=== PATIENT | male | born 1980 | race American Indian/Alaskan Native ===

== ENCOUNTER 2018-03-17 12:53 | Emergency (ER) | payer MEDICAID ==
[2018-03-17 13:04] VITALS: BMI 44.4
[2018-03-17 13:25] VITALS: BP 120/78
[2018-03-17] MEDS ORDERED: Sodium Chloride 0.9% 1,000 ML IV STA (13:51)
[2018-03-17 14:14] LABS: BASO # 0.04 K/mm3 (0.0-2.0); BASO % 0.6 % (0.0-3.0); EOS # 0.1 (0.0-0.7); EOS % 0.9 % (1.5-5.0); GRAN # 3.65 (1.4-6.5); GRAN % 57.8 % (50.0-68.0); HEMOGLOBIN 15.7 g/dL (14.0-18.0); LYMPH % 31.2 % (22.0-35.0); MEAN CELL VOLUME 89.2 fl (80.0-105.0); MEAN CORPUSCULAR HEMOGLOBIN 30.9 pg (25.0-35.0); MEAN CORPUSCULAR HGB CONC 34.7 g/dl (31.0-37.0); MEAN PLATELET VOLUME 10.9 fl (7.0-11.0); MONO # 0.6 (0.1-0.6); MONO % 9.5 % (1.0-6.0); RBC 5.08 10^6/uL (3.5-6.1); RED CELL DISTRIBUTION WIDTH 14.7 % (11.5-14.5); WHITE BLOOD COUNT 6.3 10^3/uL (4.5-11.0)
[2018-03-17 14:21] LABS: ALBUMIN 4.4 g/dL (3.0-4.8); ALT/SGPT 33 U/L (7-56); AST/SGOT 31 U/L (17-59); BLOOD UREA NITROGEN 4 mg/dL (7-21); CALCIUM 9.7 mg/dL (8.4-10.5); GFR NON-AFRICAN AMERICAN > 60; INR 1.14; LIPASE 100 U/L (23-300); PARTIAL THROMBOPLASTIN TIME 28.4 Seconds (25.1-36.5)
[2018-03-17] MEDS ORDERED: Potassium Chloride 20 mEq ER Tab PO STA (14:25)
--- NOTE | 2018-03-17 15:45 | ED PDOC ---
Arrival/HPI - General Chief Complaint: Back Pain Time Seen by Provider: 03/17/18 13:05 Historian: Patient - History of Present Illness Narrative History of Present Illness (Text): 03/17/18 15:39 37yo morbidly obese male with pmhx of hypertension, bib EMS with complaint of left knee and left rib pain s/p trauma today. States after exercising at home, he heard a popping noise on his left knee when he tried to stand up, fell and hit his left side. States he felt lightheaded when he fell. Denies hitting his head anywhere. Denies LOC, focal weakness, nausea, vomiting, diarrhea, constipation, fever,chills, abdominal pain, chest pain, SOB, diaphoresis, focal weakness, any other complaint. Past Medical History - Provider Review Nursing Documentation Reviewed: Yes - Psychiatric Hx Substance Use: No - Surgical History Other/Comment: left leg sx Family/Social History - Physician Review Nursing Documentation Reviewed: Yes Family/Social History: Unknown Family HX Smoking Status: Never Smoked Hx Alcohol Use: Yes Frequency of alcohol use: Socially Hx Substance Use: No Allergies/Home Meds Allergies/Adverse Reactions: Allergies No Known Allergies Allergy (Verified 03/17/18 13:04) Review of Systems - Physician Review All systems were reviewed & negative as marked: Yes - Review of Systems Constitutional: Normal Eyes: Normal ENT: Normal Respiratory: Normal Cardiovascular: Normal Gastrointestinal: Normal Genitourinary Male: Normal Musculoskeletal: Arthralgias (LEft knee and rib) Skin: Normal Neurological: Dizziness Endocrine: Normal Hemo/Lymphatic: Normal Psychiatric: Normal Physical Exam Vital Signs Reviewed: Yes Vital Signs Temp Pulse Resp BP Pulse Ox 03/17/18 13:04 97.5 F L 83 20 120/78 96 Temperature: Afebrile Blood Pressure: Normal Pulse: Regular Respiratory Rate: Normal Appearance: Positive for: Well-Appearing, Non-Toxic, Comfortable Pain Distress: None Mental Status: Positive for: Alert and Oriented X 3 - Systems Exam Head: Present: Atraumatic, Normocephalic Pupils: Present: PERRL Extroacular Muscles: Present: EOMI Conjunctiva: Present: Normal Mouth: Present: Moist Mucous Membranes Neck: Present: Normal Range of Motion Respiratory/Chest: Present: Clear to Auscultation, Good Air Exchange, Tender to Palpation (LEft sided lateral rib). No: Respiratory Distress, Accessory Muscle Use, Wheezes, Decreased Breath Sounds, Rales, Retracting, Rhonchi Cardiovascular: Present: Regular Rate and Rhythm, Normal S1, S2. No: Murmurs Abdomen: No: Tenderness, Distention, Peritoneal Signs Back: Present: Normal Inspection Upper Extremity: Present: Normal Inspection. No: Cyanosis, Edema Lower Extremity: Present: NORMAL PULSES, Normal ROM, Tenderness (Focal medial tenderness of the left knee), Neurovascularly Intact. No: Edema, Swelling Neurological: Present: GCS=15, CN II-XII Intact, Speech Normal, Motor Func Grossly Intact, Normal Sensory Function, Memory Normal Skin: Present: Warm, Dry, Normal Color. No: Rashes Psychiatric: Present: Alert, Oriented x 3, Normal Insight, Normal Concentration Medical Decision Making ED Course and Treatment: 03/17/18 18:54 37yo male bib EMS for stated history. Labs Left knee/rib pain xray Toradol Labs was reviewed and Potassium was repleted. Left knee xray IMPRESSION: Tricompartmental osteoarthritis with small joint effusion Rib/chest xray IMPRESSION: Unremarkable radiographs of the chest and left ribs. No left rib fracture. Result was DW the pt. Knee immobilizer applied. Crutches given. Referred to ortho. Ibuprofen rx given for knee pain. - Lab Interpretations Lab Results: PT 13.0 SECONDS (9.4-12.5) H 03/17/18 14:07 INR 1.14 03/17/18 14:07 APTT 28.4 Seconds (25.1-36.5) 03/17/18 14:07 Total Bilirubin 0.8 mg/dL (0.2-1.3) 03/17/18 14:07 AST 31 U/L (17-59) 03/17/18 14:07 ALT 33 U/L (7-56) 03/17/18 14:07 Alkaline Phosphatase 80 U/L (38-126) 03/17/18 14:07 Total Protein 8.5 g/dL (5.8-8.3) H 03/17/18 14:07 Albumin 4.4 g/dL (3.0-4.8) 03/17/18 14:07 Globulin 4.2 gm/dL 03/17/18 14:07 Albumin/Globulin Ratio 1.0 (1.1-1.8) L 03/17/18 14:07 Lipase 100 U/L (23-300) 03/17/18 14:07 - RAD Interpretation Radiology Orders: 03/17/18 13:50 KNEE WITH PATELLA LEFT 3 VIEW [RAD] Stat 03/17/18 13:51 RIBS LEFT & PA CHEST [RAD] Stat - Medication Orders Current Medication Orders: Discontinued Medications Sodium Chloride (Sodium Chloride 0.9%) 1,000 mls @ 999 mls/hr IV .Q1H1M STA Stop: 03/17/18 14:51 Last Admin: 03/17/18 14:11 Dose: 999 mls/hr eMAR Start Stop Document 03/17/18 14:11 MD (Rec: 03/17/18 14:12 [place] [id number]) Intravenous Solution Start Date 03/17/18 Start Time 14:11 End Date 03/17/18 End time 15:10 Total Infusion Time 59 Ketorolac Tromethamine (Toradol) 30 mg IVP STAT STA Stop: 03/17/18 14:04 Last Admin: 03/17/18 14:24 Dose: 30 mg MAR Pain Assessment Document 03/17/18 14:24 MD (Rec: 03/17/18 14:25 [place] [id number]) Pain Reassessment Is this a pain reassessment? No Sleep Is patient sleeping during reassessment? No Presence of Pain Presence of Pain Yes Pain Scale Used Protocol: PSCALES Pain Scale Used Numeric Location Upper or Lower Lower Pain Location Body Site Back Description Description Acute Intensity of Pain at present 7 Aggravating Factors Changing Position Alleviating Factors Medication IVP Administration Document 03/17/18 14:24 MD (Rec: 03/17/18 14:25 [place] [id number]) Charges for Administration # of IVP Administrations 1 Potassium Chloride (K-Dur 20 Meq Er Tab) 40 meq PO STAT STA Stop: 03/17/18 14:26 Disposition/Present on Arrival - Present on Arrival Any Indicators Present on Arrival: No History of DVT/PE: No History of Uncontrolled Diabetes: No Urinary Catheter: No History of Decub. Ulcer: No History Surgical Site Infection Following: None - Disposition Have Diagnosis and Disposition been Completed?: Yes Diagnosis: Knee pain, Rib pain, Hypokalemia, Light-headedness, Obesity Disposition: HOME/ ROUTINE Disposition Time: 17:00 Patient Plan: Discharge Condition: STABLE Discharge Instructions (ExitCare): Chest Pain That Is Not Caused by the Heart (DC), Hypokalemia (DC) Additional Instructions: Follow up with your doctor/Orthopedist Return to ED for any new symptoms Prescriptions: RX: Ibuprofen [Motrin Tab] 600 mg PO Q6 #20 tab Referrals: PCP,NO [Primary Care Provider] - Follow up with primary Richmond Motley III, MD [Medical Doctor] - Follow up with primary Forms: [employer] ([place])
[2018-03-17 16:53] VITALS: PULSE 66; RESP 18; TEMP 98; O2SAT 98
--- NOTE | 2018-03-17 16:53 | RAD ---
Date of service: 03/17/2018 PROCEDURE: Radiographs of the Chest and Left Ribs. HISTORY: rib pain COMPARISON: None available. TECHNIQUE: Frontal radiograph of the chest and multiple oblique radiographs of the left ribs were obtained. FINDINGS: LEFT RIBS: No fracture or focal lesion visualized. LUNGS: Clear. PLEURA: No pneumothorax or pleural fluid. CARDIOVASCULAR: Normal cardiac size. No pulmonary vascular congestion. No aortic atherosclerotic calcification present OTHER FINDINGS: None. IMPRESSION: Unremarkable radiographs of the chest and left ribs. No left rib fracture.
--- NOTE | 2018-03-17 16:54 | RAD ---
Date of service: 03/17/2018 PROCEDURE: Left Knee Radiographs. HISTORY: Pain. COMPARISON: None. FINDINGS: BONES: Normal. No fracture. JOINTS: Tricompartmental osteoarthritis most pronounced in the medial joint compartment. Large osteophytes about the medial joint compartment. No articular erosion. JOINT EFFUSION: Small OTHER FINDINGS: None. IMPRESSION: Tricompartmental osteoarthritis with small joint effusion
== END 2018-03-17 17:55 | disposition home or self-care (01) ==
LOC: MERGE 12:53 → ED 12:53
DX: R07.81 Pleurodynia (principal); M25.562 Pain in left knee; E87.6 Hypokalemia; R42 Dizziness and giddiness; E66.01 Morbid (severe) obesity due to excess calories; I10 Essential (primary) hypertension
CPT/HCPCS: 71101; 73562; 80053; 83690; 85025; 85610; 85730; 96361; 96374; 99285; J1885; J7030

== ENCOUNTER 2018-04-30 07:25 | Emergency (ER) | payer MEDICAID ==
[2018-04-30 07:30] VITALS: BMI 42.5
[2018-04-30] MEDS ORDERED: Alum-Mag Hydrox-Simethicone Susp (30 mL) PO STA (07:46)
[2018-04-30] MEDS ORDERED: Sodium Chloride 0.9% 1,000 ML IV STA (07:46)
--- NOTE | 2018-04-30 07:52 | ED PDOC ---
Arrival/HPI - General Chief Complaint: Abdominal Pain Time Seen by Provider: 04/30/18 07:42 Historian: Patient - History of Present Illness Narrative History of Present Illness (Text): 04/30/18 07:53 37 year old male, whose past medical history includes hypertension, sleep apnea, depression, and substance abuse, who presents to the emergency department complaining of right upper quadrant pain since last night around 7pm. Patient notes associated nausea, vomiting, and constipation. He denies fevers, chills, headache, dizziness, shortness of breath, dyspnea on exertion, cough, diarrhea, back pain, neck pain, or any other complaint. Time/Duration: 24 hours Symptom Onset: Gradual Symptom Course: Unchanged Activities at Onset: Light Context: Home Past Medical History - Provider Review Nursing Documentation Reviewed: Yes - Infectious Disease Hx of Infectious Diseases: None - Cardiac Hx Hypertension: Yes - Pulmonary Hx Sleep Apnea: Yes - Psychiatric Hx Depression: Yes Hx Substance Use: Yes - Surgical History Other/Comment: left leg sx - Anesthesia Hx Anesthesia: Yes Hx Anesthesia Reactions: No - Suicidal Assessment Feels Threatened In Home Enviroment: No Family/Social History - Physician Review Nursing Documentation Reviewed: Yes Family/Social History: No Known Family HX Smoking Status: Never Smoked Hx Alcohol Use: Yes Hx Substance Use: Yes Substance used: Marijuana Allergies/Home Meds Allergies/Adverse Reactions: Allergies No Known Allergies Allergy (Verified 03/19/18 08:09) Review of Systems - Physician Review All systems were reviewed & negative as marked: Yes - Review of Systems Constitutional: absent: Fevers Respiratory: absent: SOB Physical Exam - Physical Exam Narrative Physical Exam (Text): 04/30/18 08:01 Constitutional: No acute distress. obese. Head: Normocephalic. Atraumatic. Eyes: PERRL. ENT: Moist mucous membranes. Neck: Supple. Cardiovascular: Regular rate. Chest: Reproducible chest wall tenderness. Respiratory: Clear to auscultation bilaterally. GI: right upper quadrant tenderness, no rebound, no guarding, Nondistended. Back: No CVA tenderness. Musculoskeletal: No tenderness or swelling of extremities. Skin: No rash. Neurologic: Alert, no focal deficit. Vital Signs Reviewed: Yes Temperature: Afebrile Blood Pressure: Normal Pulse: Bradycardic Respiratory Rate: Normal Appearance: Positive for: Well-Appearing, Non-Toxic, Comfortable, Other (obese) Pain Distress: None Mental Status: Positive for: Alert and Oriented X 3 Medical Decision Making ED Course and Treatment: 04/30/18 08:04 Impression: 37 year old male who presents to the emergency department complaining of right upper quadrant tenderness. Differential Diagnosis included but are not limited to: cholecystitis gastritis gerd Plan: -- CT of abdomen and pelvis -- Labs -- Pepcid -- Maalox -- IV fluids -- Zofran -- Urine Culture -- Urinalysis -- Reassess and disposition Prior Visits: Notes and results from previous visits were reviewed. Progress Notes: EKG reviewed by me shows: NSR at [address]/t wave changes 04/30/18 09:11 CT of abdomen and pelvis reviewed by radiologist, shows: FINDINGS: LOWER THORAX: Unremarkable. LIVER: Unremarkable. No gross lesion or ductal dilatation. GALLBLADDER AND BILE DUCTS: Unremarkable. PANCREAS: Unremarkable. No gross lesion or ductal dilatation. SPLEEN: Unremarkable. ADRENALS: Unremarkable. No mass. KIDNEYS AND URETERS: Unremarkable. No hydronephrosis. No solid mass. 6 mm nonobstructing stone in the right kidney near the renal pelvis. VASCULATURE: Unremarkable. No aortic aneurysm. No aortic atherosclerotic calcification or mural plaque present. BOWEL: Unremarkable. No obstruction. No gross mural thickening. APPENDIX: Normal appendix. PERITONEUM: Unremarkable. No free fluid. No free air. LYMPH NODES: Unremarkable. No enlarged lymph nodes. BLADDER: Unremarkable. REPRODUCTIVE: Unremarkable. BONES: Disc degeneration at L5-S1 OTHER FINDINGS: None. IMPRESSION: No acute intra-abdominal findings Discharged home, instructed follow up GI and Urology, return to emergency department for worsening pain, fever, vomiting, dyspnea, or any other problem. - Lab Interpretations I have reviewed the lab results: Yes - RAD Interpretation Radiology Orders: 04/30/18 07:46 ABD & PELVIS IV CONTRAST ONLY [CT] Stat Servicing Manager: Radiologist - EKG Interpretation Interpreted by ED Physician: Yes Type: 12 lead EKG - Medication Orders Current Medication Orders: Sodium Chloride (Sodium Chloride 0.9%) 1,000 mls @ 999 mls/hr IV .Q1H1M STA Stop: 04/30/18 08:46 Discontinued Medications Al Hydrox/Mg Hydrox/Simethicone (Maalox Plus 30 Ml) 30 ml PO STAT STA Stop: 04/30/18 07:47 Famotidine (Pepcid) 20 mg IVP STAT STA Stop: 04/30/18 07:47 Ondansetron HCl (Zofran Inj) 8 mg IVP STAT STA Stop: 04/30/18 07:47 - Scribe Statement The provider has reviewed the documentation as recorded by the Scribe Nancy Ragsdale Provider Scribe Attestation: All medical record entries made by the Scribe were at my direction and personally dictated by me. I have reviewed the chart and agree that the record accurately reflects my personal performance of the history, physical exam, medical decision making, and the department course for this patient. I have also personally directed, reviewed, and agree with the discharge instructions and disposition. Disposition/Present on Arrival - Present on Arrival Any Indicators Present on Arrival: No History of DVT/PE: No History of Uncontrolled Diabetes: No Urinary Catheter: No History of Decub. Ulcer: No History Surgical Site Infection Following: None - Disposition Have Diagnosis and Disposition been Completed?: Yes Diagnosis: Abdominal pain, Kidney stone Disposition: HOME/ ROUTINE Disposition Time: 09:54 Patient Plan: Discharge Patient Problems: Current Active Problems Problem Status Onset Abdominal pain Acute Kidney stone Acute Condition: STABLE Discharge Instructions (ExitCare): Kidney Stones in Adults, Acid Reflux (G astroesophageal Reflux Disease), Adult (DC) Prescriptions: Docusate [Colace] 100 mg PO BID #30 cap Famotidine/Ca Carb/Mag Hydrox [Pepcid Complete Tablet Chew] 1 each PO BID #28 tab.chew Referrals: Familia Maguire MD [Medical Doctor] - Follow up with primary Salma Rose MD [Staff Provider] - Follow up with primary Forms: [employer] ([place])
[2018-04-30 08:14] LABS: BASO # 0.01 K/mm3 (0.0-2.0); BASO % 0.1 % (0.0-3.0); HEMOGLOBIN 13.7 g/dL (14.0-18.0); LYMPH # 0.5 (1.2-3.4); LYMPH % 5.7 % (22.0-35.0); MEAN CELL VOLUME 90.7 fl (80.0-105.0); MEAN CORPUSCULAR HEMOGLOBIN 31.1 pg (25.0-35.0); MEAN CORPUSCULAR HGB CONC 34.3 g/dl (31.0-37.0); MEAN PLATELET VOLUME 10.1 fl (7.0-11.0); MONO # 0.1 (0.1-0.6); PLATELET COUNT 299 10^3/uL (120.0-450.0); RED CELL DISTRIBUTION WIDTH 14.8 % (11.5-14.5); WHITE BLOOD COUNT 8.7 10^3/uL (4.5-11.0)
[2018-04-30 08:25] LABS: ALBUMIN 3.6 g/dL (3.0-4.8); ALT/SGPT 12 U/L (7-56); AST/SGOT 17 U/L (17-59); BLOOD UREA NITROGEN 5 mg/dL (7-21); CALCIUM 9.2 mg/dL (8.4-10.5); GFR NON-AFRICAN AMERICAN > 60; LIPASE 35 U/L (23-300)
[2018-04-30 08:57] LABS: LYMPHOCYTE 6 % (22.0-35.0); MONOCYTE 5 % (1.0-6.0); NEUTROPHIL 89 % (50.0-70.0)
--- NOTE | 2018-04-30 09:06 | CT ---
Date of service: 04/30/2018 PROCEDURE: CT Abdomen and Pelvis with and without intravenous contrast HISTORY: abd pain, vomiting COMPARISON: None. TECHNIQUE: Axial images of the abdomen were obtained in the pre contrast, portal venous and delayed phases of enhancement. Coronal and sagittal reformats were generated. Contrast dose: 150 cc of Omni 350 Radiation dose: Total exam DLP = 1194.61 mGy-cm. This CT exam was performed using one or more of the following dose reduction techniques: Automated exposure control, adjustment of the mA and/or kV according to patient size, and/or use of iterative reconstruction technique. FINDINGS: LOWER THORAX: Unremarkable. LIVER: Unremarkable. No gross lesion or ductal dilatation. GALLBLADDER AND BILE DUCTS: Unremarkable. PANCREAS: Unremarkable. No gross lesion or ductal dilatation. SPLEEN: Unremarkable. ADRENALS: Unremarkable. No mass. KIDNEYS AND URETERS: Unremarkable. No hydronephrosis. No solid mass. 6 mm nonobstructing stone in the right kidney near the renal pelvis. VASCULATURE: Unremarkable. No aortic aneurysm. No aortic atherosclerotic calcification or mural plaque present. BOWEL: Unremarkable. No obstruction. No gross mural thickening. APPENDIX: Normal appendix. PERITONEUM: Unremarkable. No free fluid. No free air. LYMPH NODES: Unremarkable. No enlarged lymph nodes. BLADDER: Unremarkable. REPRODUCTIVE: Unremarkable. BONES: Disc degeneration at L5-S1 OTHER FINDINGS: None. IMPRESSION: No acute intra-abdominal findings
[2018-04-30 10:10] VITALS: BP 158/92; PULSE 58; RESP 20; TEMP 98.9; O2SAT 100
--- NOTE | 2018-04-30 10:34 | CARD ---
APPROVED REPORT Date of service: 04/30/2018 EKG Measurement Heart [id number] [place] [id number] [id number] <Conclusion> Normal sinus rhythm Normal ECG
== END 2018-04-30 10:17 | disposition home or self-care (01) ==
LOC: ED 07:25
DX: N20.0 Calculus of kidney (principal); R10.9 Unspecified abdominal pain; I10 Essential (primary) hypertension
CPT/HCPCS: 74177; 80053; 83690; 85025; 93005; 96361; 96374; 96375; 99284; J2405; J7030; Q9967